=== PATIENT | female | born 1985 | race Two or more races ===

== ENCOUNTER 2023-07-11 14:43 | Emergency (ER) | payer OTHER ==
[~2023-07-11] VITALS: Ht 165.1 cm; Wt 77.1 kg
[2023-07-11] MEDS ORDERED: IRON325 MG PO (14:57)
[2023-07-11 16:58] LABS: HEMATOCRIT 30.2 % (36.0-45.00); HEMOGLOBIN 9.5 g/dL (12.0-15.00); MEAN CELL VOLUME 70.2 fL (80.00-100.00); MEAN CORPUSCULAR HGB CONC 31.3 g/dl (32.0-36.0); PLATELET COUNT 509 K/uL (150-450); RED CELL DISTRIBUTION WIDTH 17.8 % (11.5-14.5)
[2023-07-11 17:21] LABS: CALCIUM 9.5 mg/dL (8.5-10.1); CREATININE SERUM 0.8 mg/dL (0.55-1.02); GFR 79.85; POTASSIUM 3.96 mEq/L (3.5-5.1)
== END 2023-07-11 18:53 | disposition home or self-care (01) ==
LOC: ER 14:44
PROVIDERS: Nurse Practitioner Family
DX: D64.89 Other specified anemias (principal); R42 Dizziness and giddiness